=== PATIENT | male | born 1950 | race African-American/Black ===

== ENCOUNTER → 2017-04-14 | Day surgery (SDC) | payer MEDICARE ==
[~2017-04-14] MED LIST: AMLO5TAB2 PO; ASPI-630 PO; IV RINGERS,LACTATED 1000ML 1,000 ML IV SCH; LIDOCAINE 1% 1 ML SYRINGE. ID PRN; LIDOCAINE 2% PF Vial for OR 5 ML VIAL. ONE; MIDAZOLAM HCL/PF 2 MG/2 ML VIAL. IV PRN; OMEP40CA5 PO; PRAV20TA2 PO; PROPOFOL 40 ML IV ONE; RANI150T2 PO; SILD100T PO; VALS1TAB8 PO; fentaNYL PF VIAL 100 MCG/2 ML VIAL IV PRN
--- NOTE | 2017-04-14 11:32 | PDOC1 ---
HISTORY & PHYSICAL H&P Michelet Florence [id number] 1950 04/13/2017 01:15 PM 11/09 [employer] [facility], [employer] OUR PATIENTS COME FIRST [address] [place], [place] [id number] Ph. [phone] PATIENT: Michelet Florence DATE OF : 1950 DATEOF VISIT: 04/13/2017 01:15 PM PCP: Connie Jones VISIT TYPE: Office Visit This 66 year old male presents for Follow Up of Hoarseness and GERD. History of Present Illness: 1. Follow Up of Hoarseness The patient describes the voice quality as husky. Associated symptoms include post-nasal drainage and sore throat. Pertinent negatives include cough , dysphagia, dyspnea, excessive throat clearing, heartburn, hemoptysis, lump in neck and weakness. 2. GERD The problem is improving. The patient reports heartburn. It occurs randomly. Associated symptoms include chronic cough, post-nasal drainage and sore throat. Pertinent negatives include aspiration, awakens w/ choking or heartburn, dental erosions, dyspnea, hoarseness and nausea. PROBLEM LIST: Problem Description Onset Date Gastroesophageal reflux disease 11/26/2009 Benign essential hypertension 11/26/2009 Primary malignant neoplasm of colon 11/26/2009 Impotence of organic origin 11/26/2009 Osteoarthritis 11/26/2009 Chronic interstitial cystitis 11/26/2009 Low back pain 11/26/2009 RAFIQ on CPAP 08/11/2016 Abnormal glucose 04/29/2016 PAST MEDICAL/SURGICAL HISTORY (Reviewed, updated) Disease/disorder Onset Date Management Date Comments colonoscopy 06/04/2012 Back pain Diverticulosis 06/04/2012 DJD Duodenitis 10/20/2013 Erectile dysfunction Gastric polyp EGD with biopsy 10/20/2013 Gastritis 10/20/2013 GERD Helicobacter pylori Hemorrhoids Hypertension Internal hemorrhoids 06/04/2012 DIAGNOSTICS HISTORY: Test Ordered Interpretation Result completed Scan Carotid Duplex 04/09/2006 Normal 04/09/2006 Scan MRA Brain 04/09/2006 Normal - for aneurysm 04/09/2006 Scan MRI 04/09/2006 Normal Brain 04/09/2006 Cardiolyte 12/10/2005 Normal EF 52% 12/10/2005 EGD 07/10/2000 Normal GERD 07/10/2000 Colonoscopy 09/09/2003 Normal Hemorrhoids 09/09/2003 Stress Test 07/10/2002 Normal 07/10/2002 Colonoscopy 06/02/2012 abnormal Imp: Diverticulosis of the sigmoid colon, Grade 1 internal hemorrhoids. 06/04/2012 EGD 10/05/2013 abnormal Imp: Grade 1 Reflux esophagitis, duodenitis (bx), Gastritis (bx), polyp in the stomach body(bx), BX: mild chronic duodenitis without activity, antral type gastric mucosa within normal limits, consistent with fundic gland polyp 10/20/2013 Test Ordered Ordering Comments Modifier Scan Carotid Duplex 04/09/2006 Cardiac Studies Scan MRA Brain 04/09/2006 Diagnostic Images Scan MRI 04/09/2006 Diagnostic Images Cardiolyte 12/10/2005 Cardiac Studies EGD 07/10/2000 Gastroenterology Colonoscopy 09/09/2003 Gastroenterology Stress Test 07/10/2002 Cardiac Studies Colonoscopy 06/02/2012 EGD 10/05/2013 Family History (Reviewed, updated) Relationship Family Member Name Age at Condition Onset Age Cause of No family history of Hypertension N No family history of Diabetes mellitus N Mother N No history of Cancer, colon N Mother Y Cancer, pancreas Y Mother Y Family History Comments Relationship Family Member Name Condition Comments Mother Cancer, pancreas SOCIAL HISTORY (Reviewed, updated) Tobacco use reviewed. The patient is right-handed. Preferred language is Kinyarwanda. The patient does not need an fruit grower. Born in [facility]. EDUCATION/EMPLOYMENT/OCCUPATION Employment History Status Retired Restrictions [employer] full-time Currently single. Has children: 3 son(s). Smoking status: Former smoker. SMOKING STATUS Use Status Type Smoking Status Usage Per Day Years Used Total Pack Years yes Cigarette Former smoker 30.00 CESSATION Type Date Quit Longest Tobacco Free Cessation Method Cigarette Years Unassisted TOBACCO CESSATION INFORMATION Date Counseled By Order Status Description Code Tobacco Cessation Information 09/26/2013 Stephen Bill Tobacco cessation counseling completed Tobacco cessation counseling No passive smoke exposure. CAFFEINE The patient uses caffeine: coffee and tea. - not daily a day. LIFESTYLE Moderate activity level. Exercise includes walking. The patient reports there are no animals in the home. SLEEP PATTERNS Patient has no changes to sleep patterns. SABIANISM/SPIRITUAL Practices christian. Has spiritual beliefs. Jewish/spirituality is an important part of the patient's life. HOME ENVIRONMENT/SAFETY The home has smoke detectors. Carbon monoxide detector at home. There is not a pool/spa at home. Uses seat belts. RECENT TRAVEL Recently traveled outside of the [facility] to [place] 09/2013. EXPERIENCE Patient has no experience. Patient does not agree to transfusion. Allergies Ingredient Reaction Medication Name Comment JAMES INHIBITORS PENICILLINS REVIEW OF SYSTEMS System Neg/Pos Details ENMT Positive Post-nasal drainage, Sore throat. ENMT Negative Dental erosions, dysphagia, excessive throat clearing, hoarseness and lump in neck. Respiratory Positive Chronic cough. Respiratory Negative Aspiration, cough, dyspnea and hemoptysis. GI Negative Awakenings with choking or heartburn, heartburn and nausea. MS Negative Weakness. Allergic/Immuno Negative Animals at home. VITAL SIGNS Time BP mm/Hg Pulse /min Resp /min Temp F Ht ft Ht in Ht cm Wt lb Wt kg BMI kg/ m2 BSA m2 O2 Sat% 1:40 PM 130/80 76 16 98.2 5.0 10.50 179.07 217.60 98.702 30.78 2.22 95 Time Measured by 1:40 PM Maria Teresa Sarai Screening Summary: The following were reviewed: alcohol use, caffeine use and date of last psa Physical Exam Exam Findings Details Nasopharynx Normal External nose - Normal. Lips/teeth/gums - Normal. Tonsils - Normal. Oropharynx - Normal. Neck Exam Normal Inspection - Normal. Palpation - Normal. Respiratory Normal Inspection - Normal. Auscultation - Normal. Effort - Normal. Cardiovascular Normal Regular rate and rhythm. No murmurs, gallops, or rubs. Abdomen Normal Inspection - Normal. Auscultation - Normal. No abdominal tenderness. No hepatic enlargement. Extremity Normal No edema. Psychiatric Normal Orientation - Oriented to time, place, person & situation. Appropriate mood and affect. Assessment/Plan # Detail Type Description 1. Assessment Hoarseness of voice (R49.0). Impression flonase loratadine. 2. Assessment GERD without esophagitis (K21.9). Impression ent eval neg H2 cintia PPI need egd. arranged for tomorrow at [facility]. Medications (Active) Started Medication Directions Instruction Stopped 08/27/2009 take 1 by Oral route every day 02/05/2017 amlodipine 5 mg tablet take 1 tablet by oral route every day 08/27/2009 Aspir-81 81 mg Tab take 1 tablet (81MG) by ORAL route every day 01/19/2017 Diovan HCT 160 mg-12.5 mg tablet TAKE ONE TABLET BY MOUTH ONCE DAILY 03/18/2017 fluticasone 50 mcg/actuation nasal spray,suspension spray 1 spray by intranasal route every day in each nostril 08/27/2009 [place]-3 Fish Oil 1,000 mg-5 unit Cap take 1 Capsule by Oral route every day 03/18/2017 omeprazole 40 mg capsule,delayed release take 1 capsule by oral route 2 times every day before a meal 08/14/2016 pravastatin 20 mg tablet take 1 tablet (20MG) by ORAL route every evening 03/18/2017 ranitidine 150 mg tablet take 2 tablet by ORAL route every day 08/14/2016 Viagra 100 mg tablet take 1 tablet by oral route every day as needed approximately 1 hour before sexual activity Diagnostic Services Ordered/Completed This Visit Test Ordered Status Result Colonoscopy 06/02/2012 completed Imp: Diverticulosis of the sigmoid colon, Grade 1 internal hemorrhoids. EGD 10/05/2013 completed Imp: Grade 1 Reflux esophagitis, duodenitis (bx), Gastritis (bx), polyp in the stomach body(bx), BX: mild chronic duodenitis without activity, antral type gastric mucosa within normal limits, consistent with fundic gland polyp US EXAM, ABDOM, COMPLETE 07/19/2015 ordered Counseling / Educational Factors: Counseling / educational factors reviewed. Electronically signed by: Connie Jones MD 04/13/2017 02:35 PM Document generated by: Connie Jones 04/13/2017 02:35 PM Connie Jones MD, Family Practice; Ethan Huerta MD Internal Medicine; Chase Geller MD, Internal Medicine; Michel Gutierrez MD Internal Medicine; Brian Gutierrez MD, Gastroenterology; Beck House MD, Rheumatology, S. Sebastian Bunn, Physical Medicine/[employer]a[place] Ronald Mora APRN ------ 04/14/17 Patient has significant hoarseness of voice and had seen Dr. Jones and ENT and has been cleared. Suspect GERD. No dysphagia. Has been on PPI and H2 cintia. Discussed the need for EGD. Patient agreed. No change otherwise. BRIAN GUTIERREZ MD Apr 14, 2017 11:32
--- NOTE | 2017-04-14 11:37 | PDOC4 ---
GI OP Report - Dr. Mckeon Date/Time DATE: 04/14/17 TIME: 11:36 Attending Physician Brian Mckeon MD Referring Physician Indications Follow-up of gastro-esophageal reflux disease, Sore throat Pre-Op See the Anesthesia note for documentation of the administered medications Procedures Upper GI endoscopy Findings - Small hiatal hernia. - LA Grade A reflux esophagitis. - Normal stomach. - Normal examined duodenum. - No specimens collected. Plan - Discharge patient to home (ambulatory). - Patient has a contact number available for emergencies. The signs and symptoms of potential delayed complications were discussed with the patient. Return to normal activities tomorrow. Written discharge instructions were provided to the patient. - Resume regular diet. - Continue present medications. - Return to my office as needed. BRIAN MCKEON MD Apr 14, 2017 11:37
[2017-04-14 12:00] VITALS: BP 124/72
== END | disposition home or self-care (01) ==
LOC: SURG 10:09
PROVIDERS: ATTEND Internal Medicine Gastroenterology
DX: K21.0 Gastro-esophageal reflux disease with esophagitis (principal); K44.9 Diaphragmatic hernia without obstruction or gangrene; J02.9 Acute pharyngitis, unspecified; I10 Essential (primary) hypertension; Z87.39 Personal history of other diseases of the musculoskeletal system and connective tissue; Z47.33 Aftercare following explantation of knee joint prosthesis; Z85.038 Personal history of other malignant neoplasm of large intestine; Z88.0 Allergy status to penicillin; Z88.8 Allergy status to other drugs, medicaments and biological substances
CPT/HCPCS: 43235; J2704

== ENCOUNTER → 2017-07-16 | Day surgery (SDC) | payer MEDICARE ==
[~2017-07-16] MED LIST changes: +ALBUTEROL SULFATE 2.5 MG/3 ML NEBU. ONE; -LIDOCAINE 2% PF Vial for OR 5 ML VIAL. ONE; +PROPOFOL 20 ML IV ONE; -PROPOFOL 40 ML IV ONE
[2017-07-16 12:46] LABS: BASO % 1 % (0-3); EOS % 4 % (0-3); HEMATOCRIT 39.7 % (39.0-53.0); HEMOGLOBIN 13.1 g/dL (13.0-17.5); LYMPH # 2.4 x10^3/uL (1.0-4.8); LYMPH % 42 % (24-48); MEAN CORPUSCULAR HEMOGLOBIN 30 pg (25-35); MEAN CORPUSCULAR HGB CONC 33 g/dL (31-37); MEAN CORPUSCULAR VOLUME 91 fL (79-100); MONO % 13 % (0-9); NEUT % 41 % (31-73); PLATELET COUNT 272 x10^3/uL (140-400); RED BLOOD COUNT 4.35 x10^6/uL (4.30-5.70); RED CELL DISTRIBUTION WIDTH 14.8 % (11.5-14.5); WHITE BLOOD COUNT 5.8 x10^3/uL (4.0-11.0)
[2017-07-16 13:08] LABS: INR 1.1 (0.8-1.1); PROTHROMBIN TIME PATIENT 13.8 SEC (11.7-14.0)
--- NOTE | 2017-07-16 13:40 | OP ---
DATE OF SURGERY: 07/16/2017 DATE OF SERVICE: 07/16/2017 PROCEDURE: Bronchoscopy. INDICATIONS: Abnormal CT chest, hoarseness, suspected lung mass. DESCRIPTION OF PROCEDURE: Informed consent was obtained from the patient. All risks and benefits were explained. He agreed to proceed with the procedure. Propofol was used by anesthesia for sedation. Bronch was introduced in the right nostril. The upper area was passed. Vocal cords were reached. The left vocal cords do not move with respiration and were paralyzed. The trachea was entered. No tracheal lesions were seen and minimal frothy secretions seen throughout both lungs. The right lung was first examined. All subsegments of right upper, right middle and right lower lobe were examined. No endobronchial lesions seen. Bronch was then introduced into the left lung. There was evidence of severe mucosal erythema and oozing of blood in the left upper lobe and lingula. There appears to be mucosal tumor, but no definite endobronchial lesion seen. Cytology brush x2, bronchial biopsies x2 and bronchoalveolar lavage performed from the left upper lobe. No significant bleeding seen. Epinephrine squirts was introduced into the left upper lobe post-biopsy. Left lower lobe remained patent. No endobronchial lesions seen. IMPRESSION: 1. Paralyzed left vocal cord. 2. Evidence of severe mucosal erythema, and submucosal tumor involving the left upper lobe and lingula with oozing of blood seen in the same area. No definite endobronchial lesions seen. Biopsy of the mucosa performed x2, cytology brush x2 performed and bronchoalveolar lavage performed from the left upper lobe and lingula and sent for appropriate studies. 3. The patient to follow with Dr. Brown to discuss results. COMFORT GOTTI MD DR: ELAINA/nila JOB#: [id number] / [id number]
[2017-07-16 13:51] VITALS: BP 115/66
--- NOTE | 2017-07-21 13:01 | PATHOLOGY ---
CYTOPATHOLOGY REPORT CLINICAL HISTORY: Hemoptysis, Lung mass. See also [id number]. SPECIMEN(S) RECEIVED: A.Bronchoalveolar lavage, BELIA B.Bronchial brushings, BELIA C.Bronchial brush rinse, NOS FINAL DIAGNOSIS: A. Left upper lobe bronchoalveolar lavage, ThinPrep: - No malignant cells identified. - Bronchial epithelial cells, many pulmonary macrophages, and scattered inflammatory cells identified. B. Left upper lobe bronchial brushings, smears: - No malignant cells identified. - Clusters of focally reactive bronchial epithelial cells and few pulmonary macrophages and inflammatory cells identified. C. bronchial brush rinse, ThinPrep: - Atypical cells identified. - Rare cluster of atypical cells identified within a background of focally reactive bronchial epithelial cells and few pulmonary macrophages cannot rule out malignancy. (JPM:rao; 07/20/2017) COMMENT: The case is also examined by Dr. Mikel Rosales, cytopathologist, who concurs with the diagnoses. (JPM:rao; 07/21/2017) PATHOLOGIST: Sherif Hill M.D. REPORT ELECTRONICALLY SIGNED BY: Sherif Hill M.D. DATE/TIME: 07/21/2017 13:00 GROSS PATHOLOGY: A. Bronchoalveolar lavage, BELIA: The specimen is submitted unfixed, labeled "Michelet Florence". Received by the Cytology Department is three mL of cloudy fluid. One ThinPrep slide was prepared. B. Bronchial brushings, BELIA: The specimen is labeled "Michelet Florence" and consists of two fixed slides. C. Bronchial brush rinse, NOS: The specimen is labeled "Michelet Florence" and consists of a brush tip in fixative. One ThinPrep slide was prepared. (clt 07.17.2017) CLINICAL RESEARCH ASSOCIATE(S): BELEM Kitchen([facility]) INITIAL CPT CODE(S): A; 97241 B; 44129 C; 62131 Professional services performed by [facility] at [address] [address] Technical services performed by [facility] at [address] [place] [address], [address] [address]. PATIENT: MICHELET FLORENCE /AGE: 7 1950 (Age: 67) SEX: M PATIENT #: [id number] ALT CASE #: SPECIMEN COLLECTION DATE: 07/17/2017 SPECIMEN RECEIVED DATE: 07/17/2017 [facility] [address] [facility], [address] [place] [address] PHONE: [phone] DIRECTOR: Stephane Bernal M.D. * * * END OF REPORT * * *
--- NOTE | 2017-07-21 13:08 | PATHOLOGY ---
PATHOLOGY REPORT * * * * * * * * FINAL DIAGNOSIS: Bronchial biopsy, left upper lobe: - MALIGNANT EPITHELIAL NEOPLASM SHOWING CRUSH ARTIFACT, CONSISTENT WITH POORLY DIFFERENTIATED NON-SMALL CELL CARCINOMA. SEE COMMENT. (JPM:Pit; 07/21/2017) COMMENT: Sections of the left upper lobe bronchial biopsy reveal a few segments of bronchial mucosa and bronchial epithelium. Within the segment of bronchial mucosa, there are clusters of atypical cells within the stroma undermining the surface epithelium which show crush artifact. The atypical cells appear relatively large and have irregular hyperchromatic nuclei. There is no obvious evidence of glandular or squamous differentiation. A panel of immunoperoxidase stains is obtained and yields the following results: AE1-AE3: Atypical cells positive CD45: Atypical cells negative Synaptophysin: Atypical cells negative Chromogranin: Atypical cells negative CD56: Atypical cells negative Cytokeratin 7: Atypical cells focally positive P40: Atypical cells negative TTF-1: Atypical cells positive Napsin A: Atypical cells negative The morphologic and immunophenotypic findings are consistent with a diagnosis of poorly differentiated non-small cell carcinoma - favor adenocarcinoma. Interpretation is limited by crush artifact. The case is also examined by Dr. Demar Jacobs, who concurs with the diagnosis. The results are reported to Dr. Carlton on 07/21/17/. (JPM:pit; 07/21/2017) Immunoperoxidase stains performed: AE1-AE3, CD45, synaptophysin, chromogranin, CD56, CK7, p40, TTF-1, Napsin A. REPORT ELECTRONICALLY SIGNED BY: Sherif Hill M.D. DATE/TIME: 07/21/2017 13:07 * * * * * * * * GROSS PATHOLOGY: Received in formalin labeled " Michelet, BBX BELIA," are 2 segments of mendez soft tissue measuring less than 0.1 and 0.1 cm in maximum dimension. The specimen is submitted entirely in cassette A1. ([facility]; 07/16/17) INITIAL CPT CODE(S): A; 92737, 48218, 00045, 28855, 11047, 24140, 61119, 84467, 26129, 26506 Professional services performed by [facility] at [address] [address] Technical services performed by [facility] at [address] [place] [address], [address], [place] [address]. SPECIMEN(S) RECEIVED: A.Bronchial biopsy BELIA CLINICAL HISTORY: Hemoptysis, lung mass PATIENT: MICHELET IZAGUIRRE /AGE: 7 1950 (Age: 67) PATIENT #: [id number] ALT CASE #: [id number] SPECIMEN COLLECTION DATE: 07/16/2017 SPECIMEN RECEIVED DATE: 07/16/2017 [facility] - [address] [place] [address] - PHONE: [phone] * * * END OF REPORT * * *
== END | disposition home or self-care (01) ==
LOC: SURG 11:53
PROVIDERS: ATTEND Internal Medicine Critical Care Medicine
DX: C34.12 Malignant neoplasm of upper lobe, left bronchus or lung (principal); J98.09 Other diseases of bronchus, not elsewhere classified; J38.01 Paralysis of vocal cords and larynx, unilateral; Z79.01 Long term (current) use of anticoagulants; I10 Essential (primary) hypertension; K21.9 Gastro-esophageal reflux disease without esophagitis; M19.91 Primary osteoarthritis, unspecified site; Z87.39 Personal history of other diseases of the musculoskeletal system and connective tissue; Z87.891 Personal history of nicotine dependence; Z88.0 Allergy status to penicillin
CPT/HCPCS: 31624; 31625; 36415; 85025; 85610; 87070; 87205; 94640; J2704; J7613; 31622; 88104; 88112; 88305; 88341; 88342

== ENCOUNTER → 2017-08-06 | Outpatient (CLI) | payer MEDICARE ==
[2017-07-16 13:51] VITALS: BP 115/66
[~2017-08-06] MED LIST changes: -ALBUTEROL SULFATE 2.5 MG/3 ML NEBU. ONE; +GADOBUTROL 10 MMOL/10 ML VIAL IV ONE; -IV RINGERS,LACTATED 1000ML 1,000 ML IV SCH; -LIDOCAINE 1% 1 ML SYRINGE. ID PRN; -MIDAZOLAM HCL/PF 2 MG/2 ML VIAL. IV PRN; -PROPOFOL 20 ML IV ONE; -fentaNYL PF VIAL 100 MCG/2 ML VIAL IV PRN
--- NOTE | 2017-08-06 13:05 | RAD ---
MRI Brain with and without contrast History:Lung cancer Technique: Multiplanar, multi sequential pre and postcontrast MR imaging was performed of the brain. Contrast: 10 cc Gadavist Comparison: None Findings: There is no evidence of recent infarct or cytotoxic edema. The ventricles, sulci, and cisterns are within normal limits in size and configuration. There is cavum septum pellucidum. There is no significant midline shift, intraaxial mass effect, or focal abnormal extra-axial fluid collection. There are several scattered small foci of nonenhancing T2 and FLAIR hyperintense signal abnormality of the supratentorial white matter bilaterally. There is no nodular parenchymal or leptomeningeal enhancement. There is preservation of the major intracranial flow-voids at the skull base. The cerebellar tonsils are normal in location. There is no significant abnormality of the pineal gland or pituitary gland. There is patchy nqdg-xw-qbjtlhjx ethmoid air cell mucosal thickening, minimally of the frontal sinus. There is a large right maxillary sinus mucous retention cyst on the order of 2.9 cm, smaller focus on the left 1.6 cm. The mastoid air cells are aerated. There is preserved marrow signal of the clivus. Impression: 1. There is no abnormal intracranial enhancement. 2. Mild T2 and FLAIR hyperintense abnormality of the supratentorial white matter is probably due to chronic microvascular ischemic disease in a patient this age. Electronically signed by: William Cotton MD (08/06/2017 12:59 PM) [facility]
== END | disposition home or self-care (01) ==
LOC: PETSC 09:52
PROVIDERS: ATTEND Internal Medicine Hematology & Oncology
DX: C34.12 Malignant neoplasm of upper lobe, left bronchus or lung (principal); I10 Essential (primary) hypertension; Z79.01 Long term (current) use of anticoagulants
CPT/HCPCS: 70553; A9585

== ENCOUNTER → 2017-12-24 | Outpatient (CLI) | payer MEDICARE | END | disposition home or self-care (01) | LOC: PETSC 08:07 | DX: C85.13 Unspecified B-cell lymphoma, intra-abdominal lymph nodes (principal); C34.12 Malignant neoplasm of upper lobe, left bronchus or lung; J43.2 Centrilobular emphysema; J18.9 Pneumonia, unspecified organism; I25.10 Atherosclerotic heart disease of native coronary artery without angina pectoris; J34.1 Cyst and mucocele of nose and nasal sinus; I51.7 Cardiomegaly; K59.00 Constipation, unspecified; Z92.21 Personal history of antineoplastic chemotherapy; Z92.3 Personal history of irradiation; Z85.118 Personal history of other malignant neoplasm of bronchus and lung | CPT/HCPCS: 78815; A9552 ==

== ENCOUNTER → 2018-03-18 | Outpatient (CLI) | payer MEDICARE ==
[2018-03-18] MEDS: GADOBUTROL 7.5 MMOL/7.5 ML VIAL IV (11:52)
== END | disposition home or self-care (01) ==
LOC: PETSC 09:14
DX: C34.12 Malignant neoplasm of upper lobe, left bronchus or lung (principal); I73.89 Other specified peripheral vascular diseases; J34.1 Cyst and mucocele of nose and nasal sinus; Y84.2 Radiological procedure and radiotherapy as the cause of abnormal reaction of the patient, or of later complication, without mention of misadventure at the time of the procedure
CPT/HCPCS: 70553; 78815; A9552; A9585

== ENCOUNTER → 2018-03-25 | Outpatient (CLI) | payer MEDICARE | END | disposition home or self-care (01) | LOC: NM 08:08 | DX: C34.12 Malignant neoplasm of upper lobe, left bronchus or lung (principal); I10 Essential (primary) hypertension | CPT/HCPCS: 78306; 96374; A9503 ==

== ENCOUNTER 2018-05-03 08:48 | Outpatient (CLI) | payer MEDICARE ==
[~2018-05-03 08:48] MED LIST changes: -AMLO5TAB2 PO; -ASPI-630 PO; -GADOBUTROL 10 MMOL/10 ML VIAL IV ONE; +MIDAZOLAM HCL/PF 2 MG/2 ML VIAL.; -OMEP40CA5 PO; -PRAV20TA2 PO; -RANI150T2 PO; -SILD100T PO; -VALS1TAB8 PO; +fentaNYL PF VIAL 100 MCG/2 ML VIAL
[2018-05-03 09:13] LABS: BASO % 0 % (0-3); EOS # 0.1 x10^3/uL (0.0-0.7); EOS % 2 % (0-3); HEMATOCRIT 36.6 % (39.0-53.0); HEMOGLOBIN 12.3 g/dL (13.0-17.5); LYMPH # 1.2 x10^3/uL (1.0-4.8); LYMPH % 38 % (24-48); MEAN CORPUSCULAR HEMOGLOBIN 32 pg (25-35); MEAN CORPUSCULAR HGB CONC 34 g/dL (31-37); MEAN CORPUSCULAR VOLUME 94 fL (79-100); MONO # 0.8 x10^3/uL (0.0-1.1); MONO % 26 % (0-9); NEUT % 34 % (31-73); PLATELET COUNT 174 x10^3/uL (140-400); RED BLOOD COUNT 3.91 x10^6/uL (4.30-5.70); RED CELL DISTRIBUTION WIDTH 15.8 % (11.5-14.5)
[2018-05-03] MEDS ORDERED: HEPARIN PF 500 UNIT/5 ML DISP.SYRIN. IV (09:22)
[2018-05-03] MEDS ORDERED: LIDOCAINE 1%/EPI 1:100,000 20 ML VIAL. (09:22)
[2018-05-03 09:26] LABS: ADD MAN DIFF? YES
[2018-05-03 09:41] LABS: PROTHROMBIN TIME PATIENT 12.2 SEC (11.7-14.0)
[2018-05-03] MEDS: VANCOMYCIN 1GM IVPB FOR OMNI 250 ML IV (09:45)
[2018-05-03] MEDS ORDERED: VANCOMYCIN 1GM IVPB FOR OMNI 250 ML (09:51)
[2018-05-03] MEDS ORDERED: MIDAZOLAM HCL/PF 2 MG/2 ML VIAL. (09:51)
[2018-05-03] MEDS ORDERED: fentaNYL PF VIAL 100 MCG/2 ML VIAL (09:52)
[2018-05-03] MEDS: LIDOCAINE 2%/EPI 1:100,000 20 ML VIAL. IJ (10:00)
[2018-05-03] MEDS: MIDAZOLAM HCL/PF 2 MG/2 ML VIAL. IV (10:00)
[2018-05-03] MEDS: fentaNYL PF VIAL 100 MCG/2 ML VIAL IV (10:00)
[2018-05-03 13:25] LABS: % EOS 1 % (0-5); % LYMPHS 41 % (24-48); % MONOS 17 % (0-10); % SEGS 41 % (35-66)
[2018-05-03 13:26] LABS: ANISOCYTOSIS SLIGHT; PLT ESTIMATE ADEQUATE (ADEQUATE)
== END 2018-05-03 12:29 | disposition home or self-care (01) ==
LOC: INTRAD 08:48
DX: C34.92 Malignant neoplasm of unspecified part of left bronchus or lung (principal); I10 Essential (primary) hypertension; G47.30 Sleep apnea, unspecified; Z85.038 Personal history of other malignant neoplasm of large intestine; K21.9 Gastro-esophageal reflux disease without esophagitis; M19.90 Unspecified osteoarthritis, unspecified site; Z98.890 Other specified postprocedural states; Z79.82 Long term (current) use of aspirin; Z79.899 Other long term (current) drug therapy; Z87.891 Personal history of nicotine dependence
CPT/HCPCS: 36415; 36561; 76937; 77001; 85007; 85025; 85610; 99152; 99153; C1751; C1892; J2250; J3010; J3370; J3490

== ENCOUNTER → 2018-06-17 | Outpatient (CLI) | payer MEDICARE | END | disposition home or self-care (01) | LOC: PETSC 08:21 | DX: R91.8 Other nonspecific abnormal finding of lung field (principal); I10 Essential (primary) hypertension; Z85.118 Personal history of other malignant neoplasm of bronchus and lung | CPT/HCPCS: 78815; A9552 ==

== ENCOUNTER → 2018-08-19 | Outpatient (CLI) | payer MEDICARE ==
[2018-05-03 12:01] VITALS: BP 113/82
[~2018-08-19] MED LIST changes: +AMLO5TAB7 PO; +ASPI-630 PO; +CALC-77 PO; +DEXA4TAB PO; +FOLI1TAB16 PO; +HYDR15SO4 PO; -MIDAZOLAM HCL/PF 2 MG/2 ML VIAL.; +OMEG1CAP38 PO; +OMEP40CA5 PO; +ONDA8TAB9 PO; +PRAV20TA2 PO; +RANI150T2 PO; +SILD100T PO; +SILD20TA2 PO; +VALS1TAB8 PO; -fentaNYL PF VIAL 100 MCG/2 ML VIAL
--- NOTE | 2018-08-19 12:37 | RAD ---
FDG tumor localization scan, PET/CT, 08/19/2018: History: Lung cancer Following IV injection of 11.8 mCi of 18 F-FDG imaging was performed from the skull base to the proximal thighs. The noncontrast CT component was performed for attenuation correction and anatomic localization purposes rather than for primary diagnosis. The patient's blood glucose level the time of injection was 86 MG/DL. Comparison is made to a study from 06/17/2018. Physiologic activity is evident in the neck. No hypermetabolic adenopathy is seen. There is ongoing infiltrate in the medial aspect of the left lung and parahilar location. The infiltrates appear unchanged. The maximum SUV in this region is 3.9, similar to that seen on the previous study. Minimal groundglass opacities in the right lung base are unchanged. No new hypermetabolic chest process is seen. Normal GI tract and urinary tract activity is present in the abdomen and pelvis. The left adrenal gland is thickened. It demonstrates increased FDG uptake with a maximum SUV of 9.7. Similar findings were present on the previous study. No new abdominal or pelvic process is seen. A hypermetabolic focus is again noted in the left femoral neck. It currently demonstrates a maximum SUV of 7.5. Similar findings were present on the previous study. No obvious bone destruction is seen at this level. No new bony abnormality is detected. IMPRESSION: Stable FDG-PET exam.
== END | disposition home or self-care (01) ==
LOC: PETSC 11:26
PROVIDERS: ATTEND Internal Medicine Hematology & Oncology
DX: C34.12 Malignant neoplasm of upper lobe, left bronchus or lung (principal); C79.51 Secondary malignant neoplasm of bone
CPT/HCPCS: 78815; A9552

== ENCOUNTER → 2018-11-11 | Outpatient (CLI) | payer MEDICARE ==
[2018-05-03 12:01] VITALS: BP 113/82
[~2018-11-11] MED LIST changes: -HYDR15SO4 PO; +HYDR15SO6 PO
--- NOTE | 2018-11-11 13:26 | RAD ---
CLINICAL HISTORY: Lung cancer INDICATION: Restaging. COMPARISON: Prior PET scan 08/19/2018 TECHNIQUE: Location of scan: [facility] Radiopharmaceutical Dose: 12.42 mCi F-18 FDG intravenous Blood glucose at time of study: 117 FDG uptake time = 60 minutes. Images were obtained from the mid head to the mid thighs. A low dose, noncontrast CT study was performed for the purpose of attenuation correction and anatomic localization. FINDINGS: Head and Neck: Physiologic activity is seen within the head and neck. Bilateral maxillary sinus mucosal thickening and nodularity, possibly sinusitis or mucous retention cysts. Chest: Left perihilar and midlung parenchymal opacities are again seen. When compared to prior examination from 08/19/2018, these are in general stable in appearance. The SUV max in this region is approximately 3.5-3.6, grossly stable compared to prior examination when it was approximately 3.9. Right lower lobe groundglass opacities are grossly stable. No definite thoracic lymphadenopathy by size criteria on this noncontrast examination. Abdomen and Pelvis: Mild left adrenal nodularity and thickening is grossly stable stable FDG uptake, SUV max measures 9.6, previously 9.7. Physiologic GI and activity is seen. Otherwise no focus of abnormal metabolic activity within the abdomen or pelvis. Skeletal: Increased metabolic activity within the left femoral neck lesion, with an SUV max of 7.4. This was seen on prior exam, grossly stable previously SUV max of 7.5. This hypermetabolic focus corresponds to a lucent focus within the left femoral neck without associated cortical thinning/scalloping or fracture. Reference SUV Values: Mediastinal SUV Max: 3.55 Liver SUV Max: 3.48 IMPRESSION: Essentially stable examination with stable increased metabolic activity within the thickened/enlarged left adrenal gland and within the left femoral neck. Radiation Dosimetry: The radiopharmaceutical used for this exam delivers approximately 0.7 mSv/mCi (70 mRem/mCi) Source: ICRP Publication 106
== END | disposition home or self-care (01) ==
LOC: PETSC 08:53
PROVIDERS: ATTEND Internal Medicine Hematology & Oncology
DX: C34.12 Malignant neoplasm of upper lobe, left bronchus or lung (principal); Z88.8 Allergy status to other drugs, medicaments and biological substances
CPT/HCPCS: 78815; A9552

== ENCOUNTER → 2019-02-03 | Outpatient (CLI) | payer MEDICARE ==
[2018-05-03 12:01] VITALS: BP 113/82
[~2019-02-03] MED LIST changes: +AMLO5TAB10 PO; -AMLO5TAB7 PO; +DENO120V SQ; +[UNRECOGNIZED DRUG - CODE] IV
--- NOTE | 2019-02-03 11:10 | RAD ---
FDG tumor localization scan, PET/CT, 02/03/2019: History: Follow-up lung cancer Following IV injection of 14.1 mCi of 18 F-FDG, imaging was performed from the skull base to the proximal thighs. The noncontrast CT component was performed for attenuation correction and anatomic localization purposes rather than for primary diagnosis. The patient's blood glucose level at the time of injection was 104 MG/DL. Comparison is made to a study from 11/11/2018. There is persistent left parahilar infiltrate with air bronchograms involving the left upper and lower lobes. Similar infiltrate was present on the previous study. The maximum SUV in this region is 3.2, similar to the previous study where the maximum SUV was in the 3.5-3.6 range. No hypermetabolic mediastinal or hilar adenopathy is seen. The CT component again demonstrates scattered groundglass opacities in the lungs. Normal GI tract and urinary tract activity is present in the abdomen and pelvis. Again noted is left adrenal enlargement with the gland measuring approximately 2.5 cm in width. It demonstrates increased FDG uptake with a maximum SUV of 7.4. , Compared to a value of 9.6 on the previous study. No other hypermetabolic abdominal or pelvic process is seen. A hypermetabolic process is again noted in the left femoral neck currently demonstrate a maximum tissue the of 8.9 compared to value of 7.4 on the previous study. The size of this lesion appears to have slowly increased since previous studies such as the 06/17/2018 exam. No new bony abnormality is detected. Incidental CT findings include the presence of opacities in both maxillary sinuses probably representing retention cysts. A right Port-A-Cath extends into the right innominate vein. Moderate coronary artery calcifications are present. A trace amount of pericardial fluid is noted. The previously seen small left pleural effusion has largely resolved. IMPRESSION: 1. Stable left parahilar infiltrates demonstrating persistent low-level FDG uptake. 2. Stable hypermetabolic left adrenal enlargement. 3. The hypermetabolic left femoral neck lesion demonstrates slightly greater FDG uptake and appears to have slowly enlarged since older studies.
== END | disposition home or self-care (01) ==
LOC: PETSC 08:16
PROVIDERS: ATTEND Internal Medicine Hematology & Oncology
DX: C34.12 Malignant neoplasm of upper lobe, left bronchus or lung (principal); R91.8 Other nonspecific abnormal finding of lung field; E27.8 Other specified disorders of adrenal gland
CPT/HCPCS: 78815; A9552

== ENCOUNTER → 2019-05-05 | Outpatient (CLI) | payer MEDICARE ==
[2018-05-03 12:01] VITALS: BP 113/82
--- NOTE | 2019-05-05 10:09 | RAD ---
FDG tumor localization scan, PET/CT, 05/05/2019: HISTORY: Restaging lung cancer Following IV injection of 14.6 mCi of 18 F-FDG, imaging was performed from the skull base to the proximal thighs. The noncontrast CT component was performed for attenuation correction and anatomic localization purposes rather than for primary diagnosis. The patient's blood glucose level the time of injection was 95 MG/DL. Comparison is made to a study from 02/03/2019. Physiologic activity is evident in the neck. No hypermetabolic neck lesion is seen. There is moderate ongoing left parahilar infiltrate with air bronchograms. A similar appearance was present on the previous study. The maximum SUV in this region is currently 3.7 compared to a value of 3.2 on the previous study. This slight difference is of questionable significance. There are small foci of borderline activity at the right hilum and in the right paratracheal region. The maximum SUV in these regions is 3.4. No definite joel enlargement is seen. Normal GI tract and urinary tract activity is present in the abdomen and pelvis. The left adrenal gland appears to at increased slightly in size. It now demonstrates a maximum SUV of 10.1 compared to a value of 7.4 on the previous study. No new abdominal or pelvic hypermetabolic lesion is seen. There is a persistent hypermetabolic focus in the left femoral neck region. The CT component demonstrates a vague sclerotic process. This abnormal uptake has regressed since the previous study. The maximum SUV at this level is currently 3.9 compared to a value of 8.9 on the previous study. No new bony lesion is identified. IMPRESSION: Mixed response to therapy with: 1. Slight interval enlargement and increase in FDG uptake of the hypermetabolic left adrenal mass. 2. Decreasing FDG uptake at the site of the left femoral neck lesion. 3. Relatively stable left parahilar mildly hypermetabolic infiltrate.
== END | disposition home or self-care (01) ==
LOC: PETSC 07:38
PROVIDERS: ATTEND Internal Medicine Hematology & Oncology
DX: C34.12 Malignant neoplasm of upper lobe, left bronchus or lung (principal); E27.8 Other specified disorders of adrenal gland; M89.8X8 Other specified disorders of bone, other site
CPT/HCPCS: 78815; A9552

== ENCOUNTER → 2019-07-14 | Outpatient (CLI) | payer MEDICARE ==
[2018-05-03 12:01] VITALS: BP 113/82
--- NOTE | 2019-07-14 10:46 | RAD ---
CLINICAL HISTORY: Lung cancer INDICATION: Restaging. COMPARISON: PET/CT 05/05/2019, 02/03/2019 TECHNIQUE: Location of scan: [facility] Radiopharmaceutical Dose: 15.25 mCi F-18 FDG intravenous Blood glucose at time of study: 113 FDG uptake time = 60 minutes. Images were obtained from the mid head to the mid thighs. A low dose, noncontrast CT study was performed for the purpose of attenuation correction and anatomic localization. FINDINGS: Head and Neck: Physiologic activity is seen within the head and neck. Chest: Compared to 05/05/2019, there is now increase in left pleural effusion which is not hypermetabolic. Moderate left parahilar infiltrate with air bronchograms is stable to marginally progressed when accounting for the left pleural effusion. SUV max in this region measures 2.5, previously 3.7 and prior to that 3.2. Focus of uptake in the right hilum has SUV max of 2.5, previously 3.4. However no underlying enlarged lymph nodes are definitively seen but may be obscured given lack of IV contrast low-dose examination. Abdomen and Pelvis: Physiologic activity is seen within the bowel and renal collecting systems as well as solid organs including the liver. Interval decrease in the uptake in the left adrenal gland, now measuring 2.6 SUV max, previously 10.1. Skeletal: Progressive decrease in FDG uptake in the left femoral neck, with SUV max now measuring 1.9, previously 3.9. No new hypermetabolic bony lesion is identified. Reference SUV Values: Mediastinal SUV Max: 2.4 Liver SUV Max: 2.3 IMPRESSION: 1. Interval improvement/decrease in FDG uptake within the left adrenal gland, left femoral neck as well as the left parahilar infiltrate and right hilum suggesting favorable response. 2. However, there is now increase in the size of the left pleural effusion which does not demonstrate increased FDG activity. Radiation Dosimetry: The radiopharmaceutical used for this exam delivers approximately 0.7 mSv/mCi (70 mRem/mCi) Source: ICRP Publication 106
== END | disposition home or self-care (01) ==
LOC: PETSC 07:32
PROVIDERS: ATTEND Internal Medicine Hematology & Oncology
DX: C34.12 Malignant neoplasm of upper lobe, left bronchus or lung (principal); C79.51 Secondary malignant neoplasm of bone; J91.0 Malignant pleural effusion
CPT/HCPCS: 78815; A9552

== ENCOUNTER → 2019-09-23 | Outpatient (CLI) | payer MEDICARE ==
[2018-05-03 12:01] VITALS: BP 113/82
[~2019-09-23] MED LIST changes: +OMEP40CA45 PO; -OMEP40CA5 PO
--- NOTE | 2019-09-23 16:33 | RAD ---
Examination: PET W CT SKULL TO MIDTHIGH History: Lung cancer restaging Comparison/Correlation: 05/05/2019 and 07/14/2019 PET/CT exam FINDINGS: Net dose 14.88 mCi F-18 FDG was administered intravenously for purposes of PET/CT exam. Blood glucose level at the time of radiotracer administration was 100 mg/dL. Imaging was performed from the skull base to the proximal thighs. Hepatic reference uptake is SUV max of 1.9 . Uptake of radiotracer involving the visualized head and neck is unremarkable. Opacification of the right maxillary sinus is complete. Left maxillary sinus mucous retention cyst is present. Nonspecific uptake posterior to the right false cord is stable compared to multiple prior CT exams and there is no suspicious corresponding finding on CT images. Right-sided internal jugular infusion port catheter is present. Coronary arterial calcifications noted. Small pericardial effusion is present. Slight decrease in moderate-sized left pleural effusion in the interval is present. Interval increase in the right pleural effusion is noted. It is currently small to moderate in size. Left perihilar consolidation with air bronchograms is similar in size and distribution. Interstitial thickening/edema of the lower lung clifford is again seen and increased on the right. Partial right lower lobe atelectasis noted with interval increase in pleural effusion. Emphysematous involvement of lung clifford noted. Small focus of uptake posterior to the right hilum is similar following coronary comparison exams no suspicious corresponding CT finding. Left adrenal gland diffuse less involvement is similar population 07/14/2019. No significant uptake identified. No significant change in radiotracer uptake at the site in the interval. Uptake of radiotracer on the abdomen and pelvis is unremarkable. Uptake involving bowel is physiologic in distribution. There are 2 foci of uptake involving the left femoral neck and these are somewhat more evident since the prior exam with SUV max up to 2.5. This is similar upon correlation with 05/05/2019 however. No new foci of uptake involving bony structures in the interval. IMPRESSION: Increased right pleural effusion. Increased small left pleural effusion. Increased interstitial edema or thickening of the right lower lung field. No change in left perihilar consolidation and air bronchograms. No new foci of uptake involving the thorax. Diffuse left adrenal gland mass involvement is similar. Correlation to previous exam. No suspicious change in mild uptake. Foci of uptake involving the left femoral neck are somewhat more evident as compared to 07/14/2019. No new foci of bony uptake. PQRS Compliance Statement: One or more of the following individualized dose reduction techniques were utilized for this examination: 1. Automated exposure control 2. Adjustment of the mA and/or kV according to patient size 3. Use of iterative reconstruction technique Electronically signed by: Ish Mantilla MD (09/23/2019 4:30 PM) [facility]
== END | disposition home or self-care (01) ==
LOC: PETSC 07:42
PROVIDERS: ATTEND Internal Medicine Hematology & Oncology
DX: C34.12 Malignant neoplasm of upper lobe, left bronchus or lung (principal); J43.9 Emphysema, unspecified; J98.11 Atelectasis; J90 Pleural effusion, not elsewhere classified; E27.8 Other specified disorders of adrenal gland; I25.10 Atherosclerotic heart disease of native coronary artery without angina pectoris; J34.1 Cyst and mucocele of nose and nasal sinus
CPT/HCPCS: 78815; A9552